=== PATIENT | female | born 1975 | race Hispanic/Latino ===

== ENCOUNTER 2016-09-14 15:20 | Emergency (ER) | payer SELFPAY ==
[2016-09-14 15:52] LABS: Basophils % (Auto) 0.4 % (0.0-1.8); Eosinophils % (Auto) 1.4 % (0.0-4.3); Hematocrit 36.7 % (30.3-42.9); Hemoglobin 11.9 gm/dl (10.1-14.3); Mean Corpuscular HGB Conc 33 % (30-34); Mean Corpuscular Hemoglobin 28 pg (28-32); Mean Corpuscular Volume 85 fl (79-97); Platelet Count 325 K/mm3 (140-440); Red Blood Count 4.29 M/mm3 (3.65-5.03); Red Cell Distribution Width 15.9 % (13.2-15.2); White Blood Count 7.2 K/mm3 (4.5-11.0)
[2016-09-14 16:00] LABS: Bilirubin,Urine NEG (Negative); Blood,Urine SM (Negative); Ketones,Urine NEG (Negative); Leukocyte Esterase,Urine TR (Negative); Mucus,Urine 1+ /HPF; Nitrite,Urine NEG (Negative); Protein,Urine <15 mg/dL mg/dL (Negative); Urobilinogen,Urine < 2.0 mg/dL (<2.0)
[2016-09-14 16:06] LABS: Alanine Aminotransferase 22 units/L (7-56); Albumin 4.1 g/dL (3.9-5); Albumin/Globulin Ratio 1.6 %; Alkaline Phosphatase 58 units/L (35-129); Anion Gap 17 mmol/L; BUN/Creatinine Ratio 21.42; Blood Urea Nitrogen 15 mg/dL (7-17); Calcium 9.3 mg/dL (8.4-10.2); Carbon Dioxide 27 mmol/L (22-30); Chloride 102.2 mmol/L (98-107); Glucose 112 mg/dL (65-100); Lipase 69 units/L (13-60); Potassium 4.5 mmol/L (3.6-5.0); Sodium 142 mmol/L (137-145); Total Protein 6.7 g/dL (6.3-8.2)
--- NOTE | 2016-09-14 22:47 | Emergency Department Report ---
ED Female HPI - General Chief complaint: Urogenital-Female Stated complaint: VAGINAL DISCOMFORT Time Seen by Provider: 09/14/16 20:32 Source: patient Mode of arrival: Ambulatory Limitations: No Limitations - History of Present Illness Initial comments: 41-year-old female with no past medical history presenting to the emergency department complaining of vaginal discharge. Patient states onset of symptoms started 2 week prior. No inciting factor. Patient states she is not sexually active. Patient states she has history of having yeast infections and usually she is able to treat similar symptoms with OTC meds, however, she used over-the -counter medications and those symptoms haven't improved. Patient admits she initially had mild intermittent cramping. However that has resolved since presenting to the emergency department. Patient denies: Fever/chills, chest pain, nausea/vomiting/diarrhea. MD Complaint: vaginal discharge -: Gradual, week(s) (2) Location: other (suprapubic pain ) Quality: cramping Consistency: intermittent Improves with: none Worsens with: none Associated Symptoms: vaginal discharge. denies: vaginal bleeding, nausea/ vomiting, fever/chills, loss of appetite, dysuria, hematuria, shortness of breath, syncope, weakness - Related Data Sexually active: No Previous Rx's Medication Instructions Recorded Last Taken Type Pramoxine HCl [Vagisil] 1 each TP 2XWHS #20 towelette 09/14/16 Unknown Rx Allergies Allergy/AdvReac Type Severity Reaction Status Date / Time No Known Allergies Allergy Unverified 09/14/16 15:24 ED Review of Systems ROS: Stated complaint: VAGINAL DISCOMFORT Other details as noted in HPI Constitutional: denies: chills, fever Eyes: denies: eye pain, eye discharge, vision change ENT: denies: ear pain, throat pain Respiratory: denies: cough, shortness of breath, wheezing Cardiovascular: denies: chest pain, palpitations Endocrine: no symptoms reported Gastrointestinal: denies: abdominal pain, nausea, diarrhea Genitourinary: dysuria. denies: urgency, frequency, hematuria, discharge Musculoskeletal: denies: back pain, joint swelling, arthralgia Skin: denies: rash, lesions Neurological: denies: headache, weakness, paresthesias Psychiatric: denies: anxiety, depression Hematological/Lymphatic: denies: easy bleeding, easy bruising ED Past Medical Hx - Past Medical History Previous Medical History?: No - Surgical History Past Surgical History?: Yes Additional Surgical History: hysterectomty. x 2 - Social History Smoking Status: Never Smoker Substance Use Type: None - Medications Home Medications: Home Medications Medication Instructions Recorded Confirmed Last Taken Type Pramoxine HCl [Vagisil] 1 each TP 2XWHS #20 [place] 09/14/16 Unknown Rx ED Physical Exam - General Limitations: No Limitations General appearance: alert, in no apparent distress - Head Head exam: Present: atraumatic, normocephalic - Eye Eye exam: Present: normal appearance - ENT ENT exam: Present: mucous membranes moist - Neck Neck exam: Present: normal inspection - Respiratory Respiratory exam: Present: normal lung sounds bilaterally. Absent: respiratory distress - Cardiovascular Cardiovascular Exam: Present: regular rate, normal rhythm. Absent: systolic murmur, diastolic murmur, rubs, gallop - GI/Abdominal GI/Abdominal exam: Present: soft, normal bowel sounds. Absent: distended, tenderness, guarding, rebound - External exam: Present: normal external exam. Absent: erythema Speculum exam: Present: normal speculum exam. Absent: erythema, vaginal discharge, cervical discharge, vaginal bleeding, tissue Bi-manual exam: Present: normal bi-manual exam. Absent: cervical motion tendernes, adnexal tenderness, adnexal mass - Extremities Exam Extremities exam: Present: normal inspection - Back Exam Back exam: Present: normal inspection - Neurological Exam Neurological exam: Present: alert, oriented X3 - Psychiatric Psychiatric exam: Present: normal affect, normal mood - Skin Skin exam: Present: warm, dry, intact, normal color. Absent: rash ED Course Vital Signs 09/14/16 09/14/16 09/14/16 15:24 18:30 18:32 Temperature 98.1 F Pulse Rate 66 63 Respiratory 18 15 Rate Blood Pressure 114/78 112/78 Blood Pressure [Left] O2 Sat by Pulse 96 100 100 Oximetry 09/14/16 09/14/16 09/14/16 18:42 19:33 20:29 Temperature 98 F Pulse Rate 60 64 Respiratory 18 18 18 Rate Blood Pressure Blood Pressure 135/90 120/92 [Left] O2 Sat by Pulse 96 98 98 Oximetry - Reevaluation(s) Reevaluation #1: 09/14/16 22:47 She is resting comfortably no complaints. ED Medical Decision Making - Lab Data Result diagrams: 09/14/16 15:31 09/14/16 15:31 - Medical Decision Making Pt is resting comfortably with no complaints. I have reviewed patient's labs and workup with her and she agrees she stable discharge home and follow-up with OB clinic. I have low suspicion for ectopic, appendicitis, ovarian torsion, tubo-ovarian abscess. Patient verbalized understanding of return precautions. Critical care attestation.: If time is entered above; I have spent that time in minutes in the direct care of this critically ill patient, excluding procedure time. ED Disposition Clinical Impression: Vaginitis Disposition: DC-01 TO HOME OR SELFCARE Is pt being admited?: No Does the pt Need Aspirin: No Condition: Stable Instructions: Vaginitis (ED) Prescriptions: Pramoxine HCl [Vagisil] 1 each TP 2XWHS #20 [place]lette Referrals: PRIMARY CARE, [Primary Care Provider] - 3-5 Days Forms: Work/School Release Form(ED)
[2016-09-14 23:30] VITALS: BP 132/88
== END 2016-09-14 23:28 | disposition home or self-care (01) ==
LOC: ED 15:20
DX: N76.0 Acute vaginitis (principal)
CPT/HCPCS: 36415; 80053; 81001; 81025; 83690; 85025; 87210; 87591; 99283

== ENCOUNTER 2016-10-08 19:41 | Emergency (ER) | payer SELFPAY ==
[2016-10-08 21:20] LABS: Basophils % (Auto) 0.5 % (0.0-1.8); Eosinophils % (Auto) 1.7 % (0.0-4.3); Hemoglobin 12.9 gm/dl (10.1-14.3); Mean Corpuscular HGB Conc 33 % (30-34); Mean Corpuscular Hemoglobin 28 pg (28-32); Mean Corpuscular Volume 85 fl (79-97); Platelet Count 301 K/mm3 (140-440); Red Blood Count 4.56 M/mm3 (3.65-5.03); Red Cell Distribution Width 16.3 % (13.2-15.2); White Blood Count 7.9 K/mm3 (4.5-11.0)
[2016-10-08 21:53] LABS: Alanine Aminotransferase 34 units/L (7-56); Albumin 4.1 g/dL (3.9-5); Albumin/Globulin Ratio 1.6 %; Alkaline Phosphatase 57 units/L (35-129); Anion Gap 15 mmol/L; BUN/Creatinine Ratio 14.28; Blood Urea Nitrogen 10 mg/dL (7-17); Carbon Dioxide 28 mmol/L (22-30); Chloride 99.3 mmol/L (98-107); Glucose 89 mg/dL (65-100); Lipase 52 units/L (13-60); Potassium 4.2 mmol/L (3.6-5.0); Sodium 138 mmol/L (137-145); Total Protein 6.7 g/dL (6.3-8.2)
[2016-10-08 22:06] LABS: Bilirubin,Urine NEG (Negative); Blood,Urine NEG (Negative); Ketones,Urine NEG (Negative); Leukocyte Esterase,Urine MOD (Negative); Mucus,Urine FEW /HPF; Nitrite,Urine NEG (Negative); Protein,Urine <15 mg/dL mg/dL (Negative); Urobilinogen,Urine < 2.0 mg/dL (<2.0)
--- NOTE | 2016-10-09 00:31 | Emergency Department Report ---
HPI - General Chief Complaint: Abdominal Pain Time Seen by Provider: 10/09/16 00:17 - HPI HPI: This is a 41-year-old female presents to the emergency department from home with complaint of some lower abdominal cramping and some generalized dizziness since the patient donated plasma yesterday afternoon. She says that she felt some of the symptoms a week or so ago when she donated plasma but it went away on its own. This time the symptoms have continued. She denies any dysuria, vaginal bleeding, vaginal discharge, back pain, nausea, vomiting, fever. She has a past surgical history of hysterectomy and 2 previous C- sections but denies any past medical history. She has not taken anything for her symptoms prior to presentation. No recent travel or sick contacts at home. She does not have a primary care physician at this time. ED Past Medical Hx - Past Medical History Previous Medical History?: No - Surgical History Additional Surgical History: hysterectomty. x 2 - Social History Smoking Status: Never Smoker Substance Use Type: None - Medications Home Medications: Home Medications Medication Instructions Recorded Confirmed Last Taken Type HYDROcodone/APAP 5-325 [[place] 1 each PO Q6HR PRN #8 tablet 10/09/16 Unknown Rx 5/325] Ondansetron [Zofran Odt] 4 mg PO Q8H PRN #10 tab.rapdis 10/09/16 Unknown Rx ED Review of Systems ROS: Stated complaint: ABD PAIN Other details as noted in HPI Comment: All other systems reviewed and negative Constitutional: denies: chills, fever Eyes: denies: eye pain, eye discharge, vision change ENT: denies: ear pain, throat pain Respiratory: denies: cough, shortness of breath, wheezing Cardiovascular: denies: chest pain, palpitations Gastrointestinal: abdominal pain. denies: nausea, vomiting Genitourinary: denies: urgency, dysuria, discharge Musculoskeletal: denies: back pain, joint swelling, arthralgia Skin: denies: rash, lesions Neurological: other (dizziness). denies: headache, weakness, paresthesias Physical Exam - Physical Exam Vital Signs: Vital Signs 10/08/16 20:50 Temperature 98.6 F Pulse Rate 67 Respiratory 18 Rate Blood Pressure 123/80 O2 Sat by Pulse 98 Oximetry Physical Exam: GENERAL: The patient is well-developed well-nourished. HEENT: Normocephalic. Atraumatic. Extraocular motions are intact. Patient has moist mucous membranes. Pupils equal reactive to light bilaterally. NECK: Supple. Trachea is midline. CHEST/LUNGS: Clear to auscultation. There is no respiratory distress noted. HEART/CARDIOVASCULAR: Regular. There is no tachycardia. There is no gallop rub or murmur. ABDOMEN: Abdomen is soft. Mild lower abdominal tenderness palpation. Patient has normal bowel sounds. There is no abdominal distention. Obese habitus. SKIN: Skin is warm and dry. NEURO: The patient is awake, alert, and oriented. The patient is cooperative. The patient has no focal neurologic deficits. The patient has normal speech. MUSCULOSKELETAL: There is no tenderness or deformity. There is no limitation range of motion. There is no evidence of acute injury. ED Course Vital Signs 10/08/16 20:50 Temperature 98.6 F Pulse Rate 67 Respiratory 18 Rate Blood Pressure 123/80 O2 Sat by Pulse 98 Oximetry ED Medical Decision Making - Lab Data Result diagrams: 10/08/16 21:01 10/08/16 21:01 - Radiology Data Radiology results: report reviewed, image reviewed interpreted by me: Abdominal x-ray shows nonspecific nonobstructive bowel gas. CT of the abdomen and pelvis with IV contrast shows no nephrolithiasis or obstructive uropathy. There is no bowel obstruction, colitis or enteritis. There is no visible appendix. The appendix is normal. There is been a partial hysterectomy. There is a cyst in the left adnexal region measuring 4.8 x 5.4 cm. This could be a simple ovarian cyst versus possibility of cystic neoplasm not excluded. There is minimal free pelvic fluid. There is no free air. There is scarring in the anterior abdominal wall suggesting prior surgery. There is no hernia. - Medical Decision Making 41-year-old female presents to the emergency department after donating plasma. The first time she did this she had some lower abdominal discomfort that went away. This time it has continued. While in the emergency department she developed some nausea without vomiting. She was given some Zofran and something for pain as well as IV fluid. Labs are mostly unremarkable and do not show any etiology of her symptoms. Abdominal x-ray did not show any acute process. A CT of the abdomen and pelvis with IV contrast was done to look for a definitive source of her discomfort but it shows a left adnexal ovarian cysts but otherwise no acute process or significant etiology of her symptoms. Vital signs stable throughout her ED course. She will be given a referral for gastroenterology and some pain and nausea medications. She has been encouraged to return to the emergency department with any worsening of her symptoms or any acute distress. - Differential Diagnosis gastroenteritis, colitis, diverticulitis Critical Care Time: No Critical care attestation.: If time is entered above; I have spent that time in minutes in the direct care of this critically ill patient, excluding procedure time. ED Disposition Clinical Impression: Abdominal pain Qualifiers: Abdominal location: lower abdomen, unspecified Qualified Code(s): R10.30 - Lower abdominal pain, unspecified Disposition: TO HOME OR SELFCARE Is pt being admited?: No Condition: Stable Instructions: Abdominal Pain (ED) Additional Instructions: Please follow-up with your primary care physician in the next few days. I referral for a local tamper operator, Dr. Renee, to follow up regarding your abdominal discomfort. I recommend staying away from plasma donation until you can figure out the cause of your abdominal pain. Return to the emergency department with any worsening of your symptoms or any acute distress. You've been prescribed a medication that is sedating. Therefore this medication cannot be mixed with alcohol, or taken prior to driving, working, or being responsible for children. Prescriptions: HYDROcodone/APAP 5-325 [[place] 5/325] 1 each PO Q6HR PRN #8 tablet PRN Reason: Pain Ondansetron [Zofran Odt] 4 mg PO Q8H PRN #10 tab.rapdis PRN Reason: Nausea Referrals: PRIMARY MD KAVITA [Primary Care Provider] - 3-5 Days AIDEE RENEE MD [Staff Physician] - 3-5 Days Time of Disposition: 05:42
[2016-10-09] MEDS: NACL 0.9% 1000 ML 1,000 ML IV ONE (00:49)
[2016-10-09] MEDS: TORADOL IV ONE (02:57)
[2016-10-09] MEDS: ZOFRAN IV ONE (02:57)
[2016-10-09] MEDS ORDERED: MORPHINE ONE (04:14)
[2016-10-09] MEDS: MORPHINE IV ONE (04:17)
[2016-10-09] MEDS: NACL ONE (04:28)
--- NOTE | 2016-10-09 05:38 | Cat Scan Report ---
FINAL REPORT PROCEDURE: CT ABDOMEN PELVIS W CON TECHNIQUE: Computerized axial tomography of the abdomen and pelvis was performed after the IV injection of iodinated nonionic contrast. HISTORY: Abd pain llq pelvic pain COMPARISON: No prior studies are available for comparison. FINDINGS: Visualized lower thorax: No significant abnormality. Liver: Normal size and attenuation. Spleen: Normal size and attenuation. Gallbladder and biliary system: Normal. Pancreas: Normal. Adrenals: Normal. Kidneys: There is no nephrolithiasis or obstructive uropathy.. GI tract: There is no bowel obstruction, colitis or enteritis. There is no visible appendix. The appendix is normal. Lymph nodes and mesentery: Normal. Vasculature: Normal. Bladder: Normal. Reproductive organs: There has been a partial hysterectomy. There is a cyst in the left adnexal region measuring 4.8 x 5.4 centimeters.. Peritoneum: There is minimal free pelvic fluid. There is no free air.. Musculoskeletal structures: No significant abnormality. Other: There scarring in the anterior abdominal wall suggesting prior surgery. There is no hernia.. IMPRESSION: There is no nephrolithiasis or obstructive uropathy.. There is no bowel obstruction, colitis or enteritis. There is no visible appendix. The appendix is normal. There has been a partial hysterectomy. There is a cyst in the left adnexal region measuring 4.8 x 5.4 centimeters. This could be a simple ovarian cyst. Possibility of cystic neoplasm not excluded. Further evaluation with ultrasound may be helpful. There is minimal free pelvic fluid. There is no free air.. There scarring in the anterior abdominal wall suggesting prior surgery. There is no hernia..
[2016-10-09] MEDS: NORCO 5/325 PO ONE (05:55)
[2016-10-09 05:56] VITALS: BP 109/70
--- NOTE | 2016-10-09 08:12 | XRay Report ---
ABDOMEN TWO VIEWS: 10/09/16 00:29:00 CLINICAL: Abdominal pain. COMPARISON: FINDINGS: Supine upright views demonstrate a normal bowel gas pattern. Moderate stool throughout the colon. No distended bowel and no air-fluid levels. No pneumoperitoneum. No mass or suspicious calcifications. Phleboliths in the pelvis. The bones and soft tissues are normal. IMPRESSION: Negative abdomen.
== END 2016-10-09 05:56 | disposition home or self-care (01) ==
LOC: ED 19:41
DX: R10.30 Lower abdominal pain, unspecified (principal)
CPT/HCPCS: 36415; 74020; 74177; 80053; 81001; 83690; 85025; 96361; 96374; 96375; 99284; J1885; J2270; J2405; J7030; Q9967